=== PATIENT | male | born 1995 | race Caucasian/White ===

== ENCOUNTER 2016-06-06 07:14 | Emergency (ER) | payer BC, OTHER ==
[2016-06-06 08:35] VITALS: BP 118/74
--- NOTE | 2016-06-06 08:39 | RAD ---
INDICATION: Abdominal pain. COMPARISON: There are no prior studies available for comparison. TECHNIQUE: Supine and upright views of the abdomen were obtained. FINDINGS: The small bowel colon appear nondistended. There is an air-fluid level within the stomach. No free intraperitoneal air is seen. No abnormal calcifications are seen. IMPRESSION: NO EVIDENCE FOR OBSTRUCTION.
--- NOTE | 2016-06-06 10:40 | UC ---
Callum Dos Santos Billy, scribed for Lavern Villalobos DO on 06/06/16 at 0801 . Abdominal Pain Male HPI - HPI Summary HPI Summary: Patient is a 20 year-old male coming [place] [facility] [place] with intermittent, non- radiating, sharp epigastric pain. He states that the pain comes in waves every 10 minutes, with each episode lasting several minutes. Pain severity 8/10 at its worst. Pain is worse with food. He denies any vomiting at this time. He states he can "taste regurgitation" at times. He also reports loose stools as well as decreased frequency of BM's; he has only had 2-3 BM's in the last week with his last BM 3 days ago. Denies blood in the stool. Denies any urinary symptoms. Denies any other symptoms at this time. Patient had similar epigastric pain 2 weeks ago. - History of Current Complaint Chief Complaint: UCGI Stated Complaint: ABDOMINAL PAIN, AND VOMITING Time Seen by Provider: 06/06/16 07:52 Hx Obtained From: Patient Onset/Duration: Gradual Onset, Lasting Hours, Still Present Timing: Intermittent Episodes Lasting: - lasting minutes Severity Initially: Moderate Severity Currently: Moderate Pain Intensity: 8 Pain Scale Used: 0-10 Numeric Location: Epigastric Radiates: No Character: Sharp Aggravating Factor(s):: Food Alleviating Factor(s): Spontaneous Resolution, Nothing Associated Signs And Symptoms: Positive: Constipation, Vomiting - RECENT H/O STOMACH BUG RESOLVED ~10 DAYS AGO, Diarrhea - RECENT H/O STOMACH BUG RESOLVED ~ 10 DAYS AGO - NOW INFREGQUENT LOOSE STOOL, Other - decreased frequency and stool output; loose stools. Negative: Fever, Cough, Chest Pain, Dizzy, Back Pain, Blood in Stool, Urinary Symptoms, Nausea - Allergies/Home Medications Allergies/Adverse Reactions: Allergies Allergy/AdvReac Type Severity Reaction Status Date / Time No Known Allergies Allergy Verified 02/15/16 19:35 PMH/Surg Hx/FS Hx/Imm Hx Endocrine History Of: Denies: Diabetes, Thyroid Disease, Hyperthyroidism, Hypothyroidism, Dyslipidemia Cardiovascular History Of: Denies: Cardiac Disorders, Hypertension, Pacemaker/ICD, Myocardial Infarction , Congestive Heart Failure, Atrial Fibrillation, Deep Vein Thrombosis, Bleeding Disorders Respiratory History Of: Reports: Asthma - no inhaler Denies: COPD GI/ History Of: Denies: Gastroesophageal Reflux, Ulcer, Gastrointestinal Bleed, Gall Bladder Disease, Kidney Stones, Diverticulitis, Renal Disease, Urosepsis Neurological History Of: Denies: TIA, CVA, Dementia, Seizures, Migraine Psychological History Of: Denies: Anxiety, Depression, Bipolar Disorder, Schizophrenia, Post Traumatic Stress Disorder Cancer History Of: Denies: Lung Cancer, Colorectal Cancer, Breast Cancer, Prostate Cancer, Cervical Cancer Other History Of: Negative For: HIV, Hepatitis B, Hepatitis C, Anticoagulant Therapy - Surgical History Surgical History: Yes Surgery Procedure, Year, and Place: Ear tubes - Family History Known Family History: Positive: Diabetes Negative: Cardiac Disease, Hypertension - Social History Occupation: Employed Full-time - [employer] Alcohol Use: Rare Substance Use Type: None Smoking Status (MU): Never Smoked Tobacco - Immunization History Vaccination Up to Date: Yes Review of Systems Constitutional: Negative Skin: Negative Eyes: Negative ENT: Negative Respiratory: Negative Cardiovascular: Negative Gastrointestinal: Abdominal Pain, Other - loose stools, decreased stool output Genitourinary: Negative Motor: Negative Neurovascular: Negative Musculoskeletal: Negative Neurological: Negative Psychological: Negative All Other Systems Reviewed And Are Negative: Yes Physical Exam Triage Information Reviewed: Yes Appearance: Well-Appearing, No Pain Distress, Well-Nourished Vital Signs: Initial Vital Signs Temp 98.5 F 06/06/16 07:32 Pulse 71 06/06/16 07:32 Resp 16 06/06/16 07:32 BP 120/78 06/06/16 07:32 Pulse Ox 98 06/06/16 07:32 Vital Signs Reviewed: Yes Eyes: Positive: Conjunctiva Clear. Negative: Conjunctiva Inflamed ENT: Positive: Hearing grossly normal. Negative: Muffled/hoarse voice Neck: Positive: Supple, Nontender Respiratory: Positive: Lungs clear, Normal breath sounds, No respiratory distress, No accessory muscle use Cardiovascular: Positive: RRR, No Murmur Abdomen Description: Positive: Nontender - He states that his abdomen felt "irritated" but denied any abdominal tenderness, including in the epigastrium., Soft. Negative: CVA Tenderness (R), CVA Tenderness (L), Distended, Guarding, McBurney's Point Tenderness, Peritoneal Signs Bowel Sounds: Positive: Present Musculoskeletal Exam: Normal Neurological: Positive: Alert, Muscle Tone Normal Psychological: Positive: Age Appropriate Behavior Skin Exam: Normal Diagnostics - Radiology Abdomen X-Ray Radiology Interpretation Completed By: Radiologist - No evidence for obstruction. Abd Pain Male Course/Dx - Differential Dx/Clinical Impression Differential Diagnosis/HQI/PQRI: Constipation, Pancreatitis, Other - OBSTIPATION , GERD, GASTRITIS Provider Diagnoses: CONSTIPATION, GERD Discharge - Discharge Plan Condition: Stable Disposition: HOME Prescriptions: Omeprazole CAP* [Prilosec CAP* 20 MG] 20 mg PO DAILY #14 cap. Psyllium IRVING* [Metamucil IRVING*] 1 pkt PO DAILY PRN #1 box PRN Reason: Constipation Senna TAB* [Senokot TAB*] 1 tab PO BEDTIME PRN #1 box PRN Reason: Constipation Patient Education Materials: Constipation (ED), Gastroesophageal Reflux Disease (ED) Referrals: Sonu Tai MD [Primary Care Provider] - (follow up in 3-5 days) Additional Instructions: WE ARE GIVING YOU A MEDICINE THAT SHOULD HELP WITH YOUR REFLUX AND THE PAIN IT IS CAUSING YOU. HOWEVER, THIS MEDICINE SHOULD ONLY BE USED ON A SHORT TERM BASIS. ONE OF THE KEYS TO HEALTH IS TO IMPROVE YOUR DIGESTION. YOUR PCP SHOULD HELP YOU IDENTIFY WHY YOU ARE HAVING THIS PROBLEM SO THAT YOU CAN MAKE APPROPRIATE LIFESTYLE CHANGES. Your constipation right now may be the aftermath of your gastroenteritis. we recommend that you use daily fiber supplement until your bowels have normalized again. It is important to drink a full glass of water after taking fiber. You should also take the Senna tablet to stimulate persitalsis on a daily basis until your bowels have normalized. The documentation as recorded by the Callum mckeon Billy accurately reflects the service I personally performed and the decisions made by me, Lavern Villalobos DO.
== END 2016-06-06 09:14 | disposition home or self-care (01) ==
LOC: UCEAST 07:14
DX: K59.00 Constipation, unspecified (principal); K21.9 Gastro-esophageal reflux disease without esophagitis
CPT/HCPCS: 74020; 99212; G0463

== ENCOUNTER 2017-02-02 07:12 | Emergency (ER) | payer OTHER ==
[2017-02-02 07:25] VITALS: BP 109/74
--- NOTE | 2017-02-02 08:12 | UC ---
Jeremy Dos Santos Angela, scribed for Marylin Mcwilliams MD on 02/02/17 at 0747 . General HPI - HPI Summary HPI Summary: This pt is a 21 y/o male presenting to [facility] c/o sore throat, rhinorrhea, chills x2 days, worsening since last night. Pt notes he has cough which aggravates his sore throat. Pt denies pain with breathing. He states last night he had a migraine, located behind his eye. Pt has had these migraines before and usually treats them with ibuprofen. Additionally he c/o back pain, which he has had before with the flu. He endorses difficulty eating secondary to sore throat. Pt has taken ibuprofen for the last day and a half, last dose was at 2230 last night. He has not taken any medications for his rhinorrhea. He denies nausea, vomiting, SOB, chest pain, sinus pain. Pt notes his girlfriend is sick and has rhinorrhea. 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 .PMHx: bronchitis once a year (usually in March). No allergies. - History of Current Complaint Chief Complaint: UCGeneralIllness Stated Complaint: SORE THROAT COUGH CHILLS Time Seen by Provider: 02/02/17 07:26 Hx Obtained From: Patient Onset/Duration: Lasting Days Timing: Constant Associated Signs & Symptoms: Positive: Back Pain, Other - sore throat, migraine , chills, rhinorrhea. Negative: Chest Pain, Nausea, SOB, Vomiting - Allergy/Home Medications Allergies/Adverse Reactions: Allergies Allergy/AdvReac Type Severity Reaction Status Date / Time No Known Allergies Allergy Verified 02/02/17 07:18 PMH/Surg Hx/FS Hx/Imm Hx - Additional Past Medical History Additional PMH: migraine headaches, generally relieve with ibuprofen Previously Healthy: Yes Other Endocrine History: DENIES: diabetes Other Cardiovascular History: DENIES: HTN Respiratory History: Asthma - at a younger age, has not had it since, Bronchitis - once a year Other History Of: Negative For: HIV, Hepatitis B, Hepatitis C, Anticoagulant Therapy - Surgical History Surgical History: Yes Surgery Procedure, Year, and Place: Ear tubes - Family History Known Family History: Positive: Diabetes, Respiratory Disease - father has asthma, Other - Father: asthma Negative: Cardiac Disease, Hypertension - Social History 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 Lives: With Family - both parents Alcohol Use: Rare Substance Use Type: None Smoking Status (MU): Never Smoked Tobacco - Immunization History Vaccination Up to Date: Yes Review of Systems Constitutional: Chills Skin: Negative Eyes: Negative ENT: Sore Throat, Nasal Discharge - rhinorrhea, Other - NEG: sinus pain Respiratory: Cough, Other - NEG: SOB Cardiovascular: Negative Gastrointestinal: Negative Genitourinary: Negative Motor: Negative Neurovascular: Negative Musculoskeletal: Other: - back pain Neurological: Other - migraine Is Patient Immunocompromised?: No All Other Systems Reviewed And Are Negative: Yes Physical Exam Triage Information Reviewed: Yes Appearance: Ill-Appearing - looks fatigued and mildly unwell Vital Signs: Initial Vital Signs Temp 99.2 F 02/02/17 07:19 Pulse 104 02/02/17 07:19 Resp 16 02/02/17 07:19 BP 109/74 02/02/17 07:19 Pulse Ox 98 02/02/17 07:19 Eyes: Positive: Conjunctiva Inflamed - mild injection ENT: Positive: Pharyngeal erythema, TM dull - bilateral serous fluid, Tonsillar swelling Neck: Positive: Supple, Nontender, No Lymphadenopathy Respiratory: Positive: Lungs clear, Normal breath sounds Cardiovascular: Positive: RRR, No Murmur Abdomen Description: Positive: Nontender, No Organomegaly Diagnostics - Laboratory Diagnostic Studies Completed/Ordered: rapid strep negative. Course/Dx - Course Course Of Treatment: Pt medications reviewed this visit. - Differential Dx - Multi-Symptom Differential Diagnoses: Other - flu, sinusitis. Provider Diagnoses: acute sinusitis. Discharge - Discharge Plan Condition: Stable Disposition: HOME Prescriptions: Amoxicillin PO (*) [Amoxicillin 875 MG (*)] 875 mg PO BID #20 tab Patient Education Materials: Sinusitis (ED) Referrals: Sonu Tai MD [Primary Care Provider] - Additional Instructions: Increase rest and fluids and begin use of amoxicillin for treatment of sinusitis. You can use an over the counter decongestant to relieve symptoms. Continue use of ibuprofen 600mg three times daily for fever. The documentation as recorded by the Jeremy mckeon Angela accurately reflects the service I personally performed and the decisions made by me, Marylin Mcwilliams MD.
== END 2017-02-02 08:17 | disposition home or self-care (01) ==
LOC: UCEAST 07:12
DX: J01.90 Acute sinusitis, unspecified (principal); Z87.09 Personal history of other diseases of the respiratory system
CPT/HCPCS: 87651; 99212; G0463

== ENCOUNTER 2018-04-14 07:01 | Emergency (ER) | payer OTHER ==
--- OUTSIDE RECORDS SUMMARY | 2018-04-14 07:08 | XMS REPORT | Continuity of Care Document ---
:1995 External Reference #:[id number] Author Name Alexis Watson M.D. Address [address] [facility] [address] [place] [address] Care Team Providers Name Role Phone Sonu Tai M.D. 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 Payers Type Date Identification Numbers Payment Provider Subscriber Effective: Policy Number: [id number] [facility] / [facility] Bernard Walls 2017 PayID: [id number] [address] [place] [address] Advance Directives Description No Information Available Problems Description No Active Problems Family History Date Family Member(s) Problem(s) Comments Father Allergies Father Asthma Mother None mother is thin body habitus Number of Siblings Siblings: 2 First Brother ADHD First Brother ADHD First Sister Well Social History Type Date Description Comments Sex Unknown Lives With Mother And Father Sleep Typically sleeps 10 hours at least 9 a night Smoke-Free Home is smoke-free Pets 1 cat Pets 1 dog Work Status 03/19/2018 Currently Working at [employer] on [employer], works 3rd shift Abuse No history of abuse Tobacco Use Start: Unknown Tobacco Of Any Kind Denies Use Tobacco Use Start: Unknown Non Smoker Enjoy Exercising Plays Baseball Daily basketball and snowboarding Sun Exposure moderate amount of sun exposure Sun Exposure Uses sunscreen Seat Belt/Car Seat always uses seat belt Bike Helmet Always Guns in Home No Smoke Alarms Yes smoke alarm Recent Travel There has not been recent travel abroad Father's Occupation Loom Fixer Supervisor Mother's Occupation Admin. Discharge Coordinator [employer] No Daycare Needed Allergies, Adverse Reactions, Alerts Description No Known Drug Allergies Medications Medication Date Status Form Strength Qnty SIG Indications Ordering Provider PT For Back 03/19/ Active please M54.5 Shirley, Pain (Chronic 2018 evaluate Alexis Lower Back, and treat, M.Neil Acute Thoracic) modalities as needed, instruct in hep Metaxalone 03/19/ Active Tablets 800mg 30tab 1 by mouth M54.5 Silcoff, 2018 s three times Alexis, a day as M.D. needed for back pain Ondansetron 03/27/ Active Tablets 4mg 10tab 1 by mouth R11.2 Angelacotheresa, 2014 Dispers s every 4 Alexis, hours as M.D. needed for nausea/vomi ting; fill this Rx only if nausea starts escalating again Cetirizine HCL 11/27/ Active Tablets 10mg 30tab 1 by mouth 708.9 Sonu 2014 s every day A. as needed Zaire for hives M.D. Retin-A 12/14/ Active Gel 0.025% 45gm apply to 706.1 Sonu 2012 affected A. area every Zaire, night M.D. Amoxicillin/Cla 04/27/ Hx Tablets 875-125mg 20tab 1 tab po 463 Silcoff, vulanate 2012 - bid x 10 Alexis, Potassium 10/02/ M.D. 2014 Prednisone 04/27/ Hx Tablets 20mg 11tab 1 tab po x 463 Silcotheresa, 2012 - 5 days then Alexis 10/02/ 1/2 tab x 6 M.D. 2014 days Lidocaine 04/15/ Hx Solution 2% 100ml mix 15cc w/ 463 Silcotheresa, Viscous 2012 - 15cc water, Alexis, 04/25/ swish and M.DWillow 2013 swallow. may repeat q2h prn Minocycline HCL 02/14/ Hx Capsules 100mg 60cap 1 qd for 706.1 Sonu 2012 - acne for a A. 03/16/ month Zaire 2013 M.DWillow Proair HFA 03/29/ Hx Aerosol 108(90Bas 8.500 2 puffs 786.2 Siljose, 2010 - e) mcg/ac gm every 4 Alexis, 11/29/ hours as M.D. 2011 needed for cough Triamcinolone 11/24/ Hx Paste 0.1% 5gm apply 528.2 Shirley, In Orabase 2010 - 4x/day as Alexis 11/30/ needed for M.D. 2012 canker sores Prednisone 09/07/ Hx Tablets 10mg 30tab 4 tabs a 462 Sonu 2010 - s day for 4 A. 11/23/ days then 2 Zaire 2010 tabs a day M.D. for 4 days then 1 a day for 4 days Penicillin V 09/05/ Hx Tablets 500mg as Directed Unknown Potassium 2010 - 2010 Lidocaine 09/05/ Hx Solution 2% as Directed Unknown Viscous 2010 - 2010 PT For 07/14/ Hx evaluate 845.00 Silcoff, Bilateral Ankle 2010 - and treat, Alexis, Sprains 11/23/ instruct in M.D. 2010 hep, modalities prn Multivitamin/Mi 11/23/ Hx Capsules 27-1mg V20.2 Sonu francisco 2009 - A. 11/16/ Zaire 2014 M.DWillow Calcium 600 + D 11/23/ Hx Tablets 600-400mg otc 2 po qd V20.2 Sonu 2009 - -Unit A. 11/26/ Zaire 2014 M.DWillow Kenalog In 10/25/ Hx Paste 0.1% 5gm apply to 528.5 Sonu Dang 2008 - affected A. 02/22/ area tid Zaire 2007 MGrover Robitussin ac 05/30/ Hx 8Oz 2 tsp po 786.2 Shirley, 2007 - q4h prn for Alexis, 06/09/ cough; try M.D. 2007 to limit to nighttime use (as it is sedating) Amoxicillin 07/04/ Hx Suspension 250mg/5 QS 2 tsp po 381.4 Shirley 2006 - ML tid for 1 Alexis, 07/11/ week M.DWillow 2006 Sodium Sulamyd 10/19/ Hx Solution 10% QS Use qid 1 372.00 Sonu Opthalmic 2004 - Drop For 7 A. 10/26/ Days Zaire 2004 Roseline.DWillow Amoxicillin 09/20/ Hx Suspension 250mg/5 QS10d 2 tsp po 381.00 Shirley 2004 - ML ay tid for 10 Alexis, 09/30/ days M.DWillow 2004 Kenalog In 06/22/ Hx Paste 0.1% 5GMS Apply as 528.2 Alton Watson 2004 - Directed Alexis 10/25/ Ricco Walls M.D. 2008 Sores Sudafed 07/30/ Hx Syrup 15mg/5 ML 480ml 1-2 tsp qid 381.01 Sonu 2003 - for A. 08/06/ congestion Jelly Tai M.D. Amoxil 07/30/ Hx Suspension 250mg/5 QS 1 tsp tid 382.00 Sonu 2003 - ML for ten A. 08/09/ days Jelly Tai M.D. Immunizations CPT Code Status Date Vaccine Lot # [id number] Given 03/19/2018 Adacel or Boostrix, TDaP [id number] 54460 Given 12/23/2013 Gardasil HPV vaccine [id number] 59073 Given 09/18/2013 Gardasil HPV vaccine [id number] 10798 Given 03/21/2013 Gardasil HPV vaccine [id number] 79087 Given 02/14/2013 Flu, Split Virus 3Yrs [id number] 80471 Given 04/04/2012 Flu Vaccine Split Virus 3Yrs And Older [id number] 65230 Given 12/06/2011 Menactra Menningitis Vaccine [id number] 35970 Given 12/06/2011 Hep A, Ped/Adolscent, 2 Dose [id number] 52972 Given 02/07/2011 Flu, Split Virus 3Yrs [id number] 72575 Given 11/24/2010 Hep A, Ped/Adolscent, 2 Dose [id number] 24836 Given 12/22/2006 Varicella (Chicken Pox) Immunization [id number] 79461 Given 12/22/2006 Adacel or Boostrix, TDaP [id number] 43032 Given 12/22/2006 Menactra Menningitis Vaccine [id number] 00104 Given 10/13/2000 Dtap Immunization (Tripedia) (Infanrix) 19287 Given 01/27/2000 MMR Virus Immunization 70387 Given 08/05/1997 Varicella (Chicken Pox) Immunization 66555 Given 01/25/1997 DTP-Hib (Tetramune) 45270 Given 01/25/1997 Poliomyelitis Immunization 14735 Given 01/25/1997 MMR Virus Immunization 69734 Given 02/20/1996 Hep B Immunization, Ped/Adolescent To 11 Yrs 89503 Given 02/20/1996 DTP-Hib (Tetramune) 48204 Given 02/20/1996 Poliomyelitis Immunization 01130 Given 1995 Poliomyelitis Immunization 45537 Given 1995 DTP-Hib (Tetramune) 34684 Given 1995 DTP-Hib (Tetramune) 58543 Given 1995 Poliomyelitis Immunization 48792 Given 1995 Hep B Immunization, Ped/Adolescent To 11 Yrs 39436 Given 1995 Hep B Immunization, Ped/Adolescent To 11 Yrs U-Flu Refused 03/19/2018 Influenza,Unspecified Vital Signs Date Vital Result Comment 03/19/2018 5:05pm BP Systolic 128 mmHg BP Diastolic 82 mmHg Height 71.5 inches 5'11.50" Weight 178.00 lb BMI (Body Mass Index) 24.5 kg/m2 03/27/2015 9:57am BP Systolic 98 mmHg BP Diastolic 64 mmHg Heart Rate 76 /min reg Respiratory Rate 12 /min not laboured Body Temperature 98.2 F Weight 153.00 lb w/shoes 11/27/2014 3:01pm BP Systolic 122 mmHg BP Diastolic 90 mmHg Body Temperature 97.7 F Height 71.5 inches 5'11.50" Weight 151.00 lb BMI (Body Mass Index) 20.8 kg/m2 10/08/2013 3:31pm BP Systolic 100 mmHg BP Diastolic 78 mmHg Height 71 inches 5'11" Weight 148.00 lb BMI (Body Mass Index) 20.6 kg/m2 04/27/2013 11:04am BP Systolic 124 mmHg BP Diastolic 63 mmHg Heart Rate 109 /min Body Temperature 99.0 F Weight 159.00 lb shoes on 04/15/2013 12:10pm BP Systolic 104 mmHg BP Diastolic 82 mmHg Respiratory Rate 12 /min not laboured Body Temperature 98.3 F Weight 160.00 lb 04/09/2013 4:50pm BP Systolic 94 mmHg BP Diastolic 78 mmHg Height 72.50 inches 6'0.50" Weight 160.00 lb BMI (Body Mass Index) 21.4 kg/m2 03/21/2013 4:10pm BP Systolic 120 mmHg BP Diastolic 84 mmHg Weight 162.00 lb shoes on 12/06/2012 2:27pm BP Systolic 112 mmHg BP Diastolic 86 mmHg Height 71 inches 5'11" Weight 163.00 lb BMI (Body Mass Index) 22.7 kg/m2 12/06/2011 11:58am BP Systolic 110 mmHg BP Diastolic 80 mmHg Height 70.50 inches 5'10.50" Weight 148.00 lb BMI (Body Mass Index) 20.9 kg/m2 03/29/2011 4:14pm BP Systolic 98 mmHg BP Diastolic 80 mmHg Heart Rate 76 /min reg Respiratory Rate 12 /min not laboured Body Temperature 98.4 F Weight 139.00 lb Last Menstrual Period 0 03/14/2011 5:38pm BP Systolic 116 mmHg BP Diastolic 84 mmHg Weight 137.00 lb 02/07/2011 1:37pm BP Systolic 92 mmHg BP Diastolic 64 mmHg Heart Rate 76 /min Weight 136.00 lb 01/24/2011 10:08am BP Systolic 97 mmHg BP Diastolic 61 mmHg Heart Rate 89 /min Body Temperature 98.4 F Weight 132.00 lb 11/24/2010 4:12pm BP Systolic 100 mmHg BP Diastolic 60 mmHg Height 69.25 inches 5'9.25" Weight 128.00 lb BMI (Body Mass Index) 18.8 kg/m2 09/10/2010 4:48pm BP Systolic 98 mmHg BP Diastolic 62 mmHg Body Temperature 97.6 F Weight 122.00 lb 09/07/2010 3:42pm BP Systolic 88 mmHg BP Diastolic 68 mmHg Body Temperature 97.7 F Weight 122.00 lb 07/14/2010 4:33pm BP Systolic 100 mmHg BP Diastolic 58 mmHg Heart Rate 80 /min reg Respiratory Rate 12 /min not laboured Body Temperature 99.9 F Height 68.50 inches 5'8.50" Weight 126.00 lb BMI (Body Mass Index) 18.9 kg/m2 03/11/2010 3:35pm BP Systolic 98 mmHg BP Diastolic 76 mmHg Body Temperature 98.2 F Weight 125.00 lb 02/03/2010 4:58pm BP Systolic 94 mmHg BP Diastolic 70 mmHg Heart Rate 72 /min reg Respiratory Rate 12 /min not laboured Body Temperature 98.4 F Weight 120.00 lb Last Menstrual Period 0 11/23/2009 4:51pm BP Systolic 100 mmHg BP Diastolic 72 mmHg Heart Rate 80 /min Respiratory Rate 16 /min Height 66.75 inches 5'6.75" Weight 115.00 lb BMI (Body Mass Index) 18.1 kg/m2 09/24/2008 3:45pm Height 62 inches 5'2" Weight 96.00 lb BMI (Body Mass Index) 17.6 kg/m2 Last Menstrual Period 0 10/26/2007 4:08pm BP Systolic 94 mmHg BP Diastolic 78 mmHg Heart Rate 80 /min Respiratory Rate 16 /min Height 59 inches 4'11" Weight 83.00 lb BMI (Body Mass Index) 16.8 kg/m2 05/30/2007 3:00pm BP Systolic 80 mmHg BP Diastolic 56 mmHg Body Temperature 98.3 F Height 58.75 inches 4'10.75" Weight 79.00 lb BMI (Body Mass Index) 16.1 kg/m2 12/22/2006 9:58am BP Systolic 112 mmHg BP Diastolic 66 mmHg Heart Rate 80 /min Respiratory Rate 16 /min Height 57.25 inches 4'9.25" Weight 72.00 lb BMI (Body Mass Index) 15.4 kg/m2 07/25/2006 4:35pm BP Systolic 104 mmHg BP Diastolic 80 mmHg Body Temperature 98.1 F Height 56.75 inches 4'8.75" Weight 70.50 lb BMI (Body Mass Index) 15.4 kg/m2 07/04/2006 3:13pm BP Systolic 84 mmHg BP Diastolic 54 mmHg Body Temperature 97.9 F Height 56.50 inches 4'8.50" Weight 71.00 lb BMI (Body Mass Index) 15.6 kg/m2 10/19/2004 4:42pm Weight 63.00 lb 09/20/2004 8:47am Body Temperature 98.2 F Weight 64.00 lb 06/22/2004 9:01am BP Systolic 102 mmHg BP Diastolic 60 mmHg Body Temperature 101.3 F PO Weight 62.00 lb 02/25/2004 4:35pm BP Systolic 80 mmHg BP Diastolic 66 mmHg Heart Rate 80 /min Respiratory Rate 16 /min Height 51.3 inches 4'3.30" Weight 59.00 lb BMI (Body Mass Index) 15.8 kg/m2 Last Menstrual Period 0 09/01/2003 2:45pm Height 50.75 inches 4'2.75" Weight 58.50 lb BMI (Body Mass Index) 16.0 kg/m2 07/31/2003 4:38pm BP Systolic 100 mmHg R Arm Peds Cuff BP Diastolic 70 mmHg R Arm Peds Cuff Height 51 inches 4'3" Weight 58.00 lb BMI (Body Mass Index) 15.7 kg/m2 Results Test Date Facility Test Result H/L Range Note Laboratory test 02/15/2016 [facility] Rapid Strep Negative N Negative 1 finding [phone] Molecular Laboratory test 07/20/2015 [facility] Rapid Strep Negative N Negative 2 finding [phone] Molecular CBC Auto Diff 04/27/2013 [facility] White Blood 15.4 10^3/uL High 4.8 -10.8 [phone] Count Red Blood Count 4.97 10^6/uL 4.0-5.4 Hemoglobin 14.6 g/dL 14.0-18.0 Hematocrit 44 % 42-52 Mean Corpuscular Volume 88 fL 80-94 Mean Corpuscular Hemoglobin 29 pg 27-31 Mean Corpuscular HGB Conc 33 g/dL 31-36 Red Cell Distribution Width 13 % 10.5-15 Platelet Count 285 10^3/uL 150-450 Mean Platelet Volume 8 um3 7.4-10.4 Abs Neutrophils 12.9 10^3/uL High 1.5-7.7 Abs Lymphocytes 1.3 10^3/uL 1.0-4.8 Abs Monocytes 1.1 10^3/uL High 0-0.8 Abs Eosinophils 0 10^3/uL 0-0.6 Abs Basophils 0.1 10^3/uL 0-0.2 Abs Nucleated RBC 0.02 10^3/uL Granulocyte % 83.3 % High 38-83 Lymphocyte % 8.6 % Low 25-47 Monocyte % 7.3 % 1-9 Eosinophil % 0.3 % 0-6 Basophil % 0.5 % 0-2 Nucleated Red Blood Cells % 0.1 Laboratory test 04/27/2013 [facility] Monospot Negative Negative 3 finding [phone] Laboratory test 04/27/2013 In House Culture Throat - finding Rapid Screen Culture Throat - Laboratory test finding 04/15/2013 In House Culture Throat Rapid Screen neg Culture Throat neg Xray 02/07/2011 [facility] X-Ray, Wrist, Complete, unremarkable 4 Min. Of 3 Views L X-Ray, Hand, Min. 3 Views, LT see resutls Laboratory test finding 01/24/2011 In House Culture Throat Rapid Screen neg Culture Throat neg CBC With Manual 09/07/2010 [facility] White Blood Count 4.2 CUMM Low 4.8-10.8 Diff [phone] Red Cell Count 4.40 CUMM Low 4.6-6.2 Hemoglobin 13.5 g/dL Low 14.0-18.0 Hematocrit 40 % Low 42-52 Mean Corpuscular Volume 90 um3 80-94 Mean Corpuscular Hemoglob 31 pg 27-31 Mean Corpuscular HGB Cone 34 g/dL 32-36 Redcell Distribution WDTH 12 % 10.5-15 Platelet Count 276 CUMM 150-450 Mean Platelet Volume 8.7 um3 7.4-10.4 Polysegmented Neutrophil 42 % 38-83 Lymphocyte 46 % 25-47 Monocyte 10 % 0-13 Eosinophil 1 % 0-6 Basophil 1 % 0-2 Absolute Neutrophil Count 1.7 RBC Morphology NORMAL Liver Function Panel 09/07/2010 [facility] Total Protein 6.8 GM/DL 6.2-8.3 [phone] Albumin 3.8 GM/DL 3.6-5.4 Globulin 3.0 GM/DL 2-4 Albumin/Globulin Ratio 1.3 1-3 Bilirubin Total 0.9 mg/dL 0.4-1.5 5 Bilirubin Direct 0.1 mg/dL 0.1-0.5 Indirect Bilirubin 0.8 mg/dL 0.3-1.0 6 Alkaline Phosphatase 112 U/L Low 135-393 Alt (SGPT) 9 U/L Low 17-63 Ast (Sgot) 15 U/L 12-42 Laboratory test 09/07/2010 [facility] Monospot NEGATIVE Negative finding [phone] CBC No Diff 09/04/2010 [facility] White Blood Count 6.4 CUMM 4.8- 10.8 [phone] Red Cell Count 4.30 CUMM Low 4.6-6.2 Hemoglobin 13.0 g/dL Low 14.0-18.0 Hematocrit 38 % Low 42-52 Mean Corpuscular Volume 88 um3 80-94 Mean Corpuscular Hemoglob 30 pg 27-31 Mean Corpuscular HGB Cone 35 g/dL 32-36 Redcell Distribution WDTH 13 % 10.5-15 Platelet Count 205 CUMM 150-450 Mean Platelet Volume 8.7 um3 7.4-10.4 Laboratory test 09/04/2010 [facility] Monospot NEGATIVE Negative finding [phone] Throat-Beta Strept 09/04/2010 [facility] Throat-Beta Strep NEGAD 7 [phone] Culture Laboratory test 07/14/2010 In House Culture Throat neg finding Rapid Screen Culture Throat neg Xray 03/11/2010 [facility] X-Ray, Ribs, Unilateral - 2 nl Views, RT Ua Inhouse 10/26/2007 In House Ua Glucose - Ua Bilirubin - Ua Ketones - Ua Specific Wynne 1.020 Ua Blood - Ua PH 6.0 Ua Protein - Ua Urobilinogen - Ua Nitrite - Ua Leukocytes - Urine Micro Inhouse 10/26/2007 In House Urine Microscopic no cells, sediment Inhouse Laboratory test 10/26/2007 In House Hemoglobin 14.7 finding Laboratory test 05/30/2007 In House Culture Throat NEG finding Laboratory test 12/22/2006 In House Hemoglobin 11.7 finding Urine Micro Inhouse 12/22/2006 In House Urine Microscopic - Inhouse Ua Inhouse 12/22/2006 In House Ua Glucose - Ua Bilirubin - Ua Ketones - Ua Specific Wynne 1.030 Ua Blood - Ua PH 5.0 Ua Protein - Ua Urobilinogen - Ua Nitrite - Ua Leukocytes - Laboratory test finding 07/26/2006 In House Culture Throat Rapid Screen - Culture Throat - Laboratory test finding 06/22/2004 In House Culture Throat Rapid Screen neg Culture Strep Group A Throat NEG 1 Medical Librarian: [id number] WESLY Guthrie 2 Medical Librarian: [id number] BETINA FRANCOIS Due to the increased sensitivity of molecular testing, reflex cultures are no longer performed. 3 N 4 hand: slight variant at the [address] [facility] ulnar side 5 A metabolite of Naproxen, O-desmethylnaproxen, has been shown to interfere with the [place] method for measuring total bilirubin. Samples from patients who have taken Naproxen have shown spurious elevation in total bilirubin levels. 6 Please note updated reference range, effective 11/19/09 7 NEGATIVE FOR GROUP A BETA STREPTOCOCCUS Procedures Date Code Description Status 12/06/2012 23641 Visual Acuity Screening Test Completed 02/07/2011 20514 X-Ray Hand Three Or More Views Completed 02/07/2011 51148 X-Ray Wrist Three Views Completed 03/11/2010 20746 X-Ray Ribs Two Views Completed 12/03/2009 22903 Destruction Of Skin Lesions Up To 14 Flat Warts/Molluscum Completed Contag 09/24/2008 20087 Destruction Of Skin Lesions Up To 14 Flat Warts/Molluscum Completed Contag 12/22/2006 21947 Visual Acuity Screening Test Completed 10/19/2004 36906 Visual Acuity Screening Test Completed 09/01/2003 72050 Tympanometry Completed 07/31/2003 27964 Tympanometry Completed Encounters Type Date Location Provider Dx Diagnosis Office Visit 03/19/2018 4:00p Main Office Alexis Watson M.D. M54.5 Low back pain M54.9 Dorsalgia, unspecified Z23 Encounter for immunization Z41.8 Encntr for oth proc for purpose oth [facility] Office Visit 03/27/2015 10:00a Main Office Alexis Watson, R11.2 Nausea with M.D. vomiting, unspecified A09 Infectious gastroenteritis and colitis, unspecified Office Visit 11/27/2014 3:00p Main Office Jessica Henry, 708.9 Urticaria Unspec RPA-C 465.8 Upper Respiratory Infections Acute Other Multiple Sites Office Visit 10/08/2013 3:15p Main Office Sonu Tai M.D. 706.1 Acne Other 309.29 Adjustment Reaction Other Office Visit 04/27/2013 10:30a Main Office Manuela Garcia 463 Tonsillitis Acute 463 Tonsillitis Acute 784.1 Throat Pain 784.1 Throat Pain Office Visit 04/15/2013 11:30a Main Office Alexis Watson, 463 Tonsillitis Acute M.D. 784.1 Throat Pain Office Visit 04/09/2013 4:30p Main Office Sonu Rodrigez.1 Acne Edvin Tai M.D. Office Visit 03/21/2013 4:00p Main Office Barrie Fish, 726.72 Tendinitis D.O. Tibialis V05.8 Single Disease Spec Other Vaccination & Inoculation V07.2 Prophylactic Immunotherapy Office Visit 02/14/2013 12:55p Main Office Sonu Tai M.D. 706.1 Acne Other v07.2 Prophylactic Immunotherapy v04.81 Need For Prophylactic Vaccination & Inoculation/Influenza Office Visit 12/06/2012 2:15p Main Office Sonu A. Klepack, M.D. 706.1 Acne Other V20.2 Routine Infant Or Child Health Check V65.49 Counseling Other Spec V72.0 Examination Eyes & Vision Office Visit 12/06/2011 11:15a Main Office Alexis Watson, V20.2 Routine Infant Or M.D. Child Health Check V05.3 Viral Hepatitis Vaccination & Inoculation V05.8 Single Disease Spec Other Vaccination & Inoculation V07.2 Prophylactic Immunotherapy Office Visit 03/29/2011 3:45p Main Office Alexis Watson, 474.00 Tonsillitis Chronic M.D. 786.2 Cough Office Visit 03/14/2011 5:15p Main Office Alexis Watson, 845.00 Sprains & Strains M.D. Ankle Unspec Site E007.7 Activities Involving Volleyball ([place]ach) (Court) Office Visit 02/07/2011 1:40p Main Office Lety Raymundo, 842.09 Sprains & Strains P.A. Wrist & Hand Other V04.81 Need For Prophylactic Vaccination & Inoculation/Influenza V07.2 Prophylactic Immunotherapy Office Visit 01/24/2011 10:20a Main Office Lety Raymundo, 465.9 URI Upper P.A. Respiratory Infections Acute Unspec Sites 462 Pharyngitis Acute Office Visit 11/24/2010 4:00p Main Office Alexis Watson, V20.2 Routine Or M.D. Child Health Check 528.2 Oral Soft Tissue Disease Exclu Gingiva & Tongue Oral Aphthae V05.3 Viral Hepatitis Vaccination & Inoculation V07.2 Prophylactic Immunotherapy Office Visit 09/10/2010 4:30p Main Office Sonu Muniz Pharyngitis Acute Peng Tai Office Visit 09/07/2010 3:30p Main Office Sonu Muniz Pharyngitis Acute Peng Tai Office Visit 07/14/2010 4:15p Main Office Alexis Watson, 465.9 URI Upper M.DWillow Respiratory Infections Acute Unspec Sites 784.1 Throat Pain 845.00 Sprains & Strains Ankle Unspec Site 719.47 Pain Joint Ankle & Foot E007.3 Activities Involving Baseball Office Visit 03/11/2010 3:25p Main Office Sonu Lai 922.1 Contusion Chest Peng Tai Wall 786.52 Painful Respiration Office Visit 02/03/2010 4:45p Main Office Alexis Watson, 465.9 URI Upper M.D. Respiratory Infections Acute Unspec Sites 381.81 Eustachian Tube Dysfunction Office Visit 12/03/2009 3:45p Main Office Sonu Tai, 078.12 Plantar Wart M.DWillow 729.5 Pain In Limb Office Visit 11/23/2009 4:15p Main Office Sonu Tai, V20.2 Routine Infant Or M.D. Child Health Check 078.12 Plantar Wart Office Visit 05/15/2009 9:45a Main Office Alexis Watson, 924.11 Contusion Knee M.D. Office Visit 10/26/2007 4:00p Main Office Sonu Lai V20.2 Routine Infant Or Peng Tai Child Health Check 528.5 Oral Soft Tissue Excluding Gingiva & Tongue Lip Diseases 280.9 Iron Deficiency Anemia Unspec Office Visit 05/30/2007 2:30p Main Office Alexis Watson, 465.9 URI Upper M.D. Respiratory Infections Acute Unspec Sites 462 Pharyngitis Acute 786.2 Cough Office Visit 12/22/2006 10:00a Main Office Sonu Tai, V20.2 Routine Infant Or M.D. Child Health Check v06.1 Yxizucybdm-Dnldkms-Xirqyfah Combined (DTaP) v05.8 Single Disease Spec Other Vaccination & Inoculation v05.4 Varicella Vaccination & Inoculation v07.2 Prophylactic Immunotherapy v72.0 Examination Eyes & Vision v78.0 Screening Iron Deficiency Anemia v81.6 Screening For Genitourinary Conditions Other & Unspec V78.0 Screening Iron Deficiency Anemia Office Visit 07/25/2006 4:45p Main Office Alexis Watson, 465.9 URI Upper M.D. Respiratory Infections Acute Unspec Sites 462 Pharyngitis Acute Office Visit 07/04/2006 3:15p Main Office Shirley 381.4 Otitis Media Acute Or Peng Espinoza Chronic Nonsuppurative 728.71 Fibromatosis Plantar Fascia Office Visit 10/19/2004 4:15p Main Office Sonu Lai 372.00 Conjunctivitis Acute Peng Tai Unspec Office Visit 10/01/2004 8:30a Main Office Shirley 381.00 Otitis Media Peng Espinoza Nonsuppurative Acute Unspec Office Visit 09/20/2004 8:30a Main Office Shirley, 381.00 Otitis Media Peng Espinoza Nonsuppurative Acute Unspec Office Visit 06/22/2004 10:00a Main Office Shirley, 780.6 Fever Peng Espinoza 465.9 URI Upper Respiratory Infections Acute Unspec Sites 462 Pharyngitis Acute 528.2 Oral Soft Tissue Disease Exclu Gingiva & Tongue Oral Aphthae Office Visit 02/25/2004 4:00p Main Office Sonu Lai V20.2 Routine Or Peng Tai Child Health Check Office Visit 09/01/2003 2:45p Main Office Sonu Lai 381.19 Otitis Media Peng Tai Chronic Serous Other 465.9 URI Upper Respiratory Infections Acute Unspec Sites Office Visit 07/31/2003 4:50p Main Office Sonu Lai 388.70 Otalgia & Earache Peng Tai Unspec 381.01 Otitis Media Serous Acute 382.00 Otitis Media Suppurative Acute Plan of Treatment 03/19/2018 - Alexis Watson M.D.M54.5 Low back painNew Medication:PT For Back Pain (Chronic Lower Back, Acute Thoracic) - please evaluate and treat, modalities as needed, instruct in hepMetaxalone 800 mg - 1 by mouth three times a day as needed for back painComments:Chronic recurrent R sided LBP since remote trauma ~age 18-19 as noted above. Advised PT to address this, reserve muscle relaxants for use for flares.M54.9 Dorsalgia, unspecifiedComments:Upper back pain after recent fall w/ neck far flexed as noted above. No rad flags. Suspect slow improvement over weeks. RTO prn. If very persistent definitely address this w/ PT.Z23 Encounter for immunizationComments:Encouraged TdaP and flu vaccine. He declined flu but accepts TdaP. VIS provided.Z41.8 Encounter for other procedures for purposes other than remed
[2018-04-14 07:11] VITALS: BP 132/72
--- NOTE | 2018-04-14 07:24 | UC ---
Complaint Male HPI - HPI Summary HPI Summary: Patient Chief Complaint: right flank pain; dark urine Patient states he lifted weights yesterday; has had dark urine in past; pain is new. Injected testosterone ethonate 0.5 cc night; 24 hours later (last night) developed pain and dark urine. Pain quality: sharp, achey Course, aggravating, relieving: nothing stops; a little worse with movement; mostly "inside" Location:right flank, level of T-12 rib; localized to flank and anterior axillary line Severity: 11/07 MD note: VSS; 132/72; labs: plus 3 blood; no WBC; 2 plus protein Nurses Note: pt states that he has rt flank pain that started last night. pt states his urine is discolored and is reddish/purple. pt states he began to take large amounts of whey protein and started to inject steroids. pt states that it was is a sealed container and it is supposed to be testosterone and ethonate. pt states he first injection was on . - History of Current Complaint Chief Complaint: UCBackPain Stated Complaint: BACK AND R SIDE PAIN Time Seen by Provider: 04/14/18 07:15 Hx Obtained From: Patient Onset/Duration: Sudden Onset Timing: Constant Pain Intensity: 10 - 11/07 pain; was 02/07 - Allergies/Home Medications Allergies/Adverse Reactions: Allergies Allergy/AdvReac Type Severity Reaction Status Date / Time No Known Allergies Allergy Verified 04/14/18 07:11 Home Medications: Home Medications NK [No Home Medications Reported] 04/14/18 [History Confirmed 04/14/18] PMH/Surg Hx/FS Hx/Imm Hx - Additional Past Medical History Additional PMH: Review of visit history: low back pain; no kidnesy disease; no uti hx. 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 Family: with fiance Habits: lifts weights Previously Healthy: Yes Other History Of: Negative For: HIV, Hepatitis B, Hepatitis C, Anticoagulant Therapy - Surgical History Surgical History: Yes Surgery Procedure, Year, and Place: Ear tubes - Family History Known Family History: Positive: Diabetes, Respiratory Disease - father has asthma, Other - Father: asthma Negative: Cardiac Disease, Hypertension - Social History Alcohol Use: Rare Substance Use Type: None Smoking Status (MU): Never Smoked Tobacco - Immunization History Vaccination Up to Date: Yes Review of Systems All Other Systems Reviewed And Are Negative: Yes Constitutional: Positive: Negative Skin: Positive: Bruising - slight injection site discomfort anterior right thig Eyes: Positive: Negative ENT: Positive: Negative Respiratory: Positive: Negative Cardiovascular: Positive: Negative Gastrointestinal: Positive: Negative Genitourinary: Positive: Hematuria, Other - very dark urine beginning 10 hours ago. Negative: Dysuria, Frequency, Urgency Motor: Positive: Negative Neurovascular: Positive: Negative Musculoskeletal: Positive: Negative Neurological: Positive: Negative Psychological: Positive: Negative Is Patient Immunocompromised?: No - Comments Additional Review of Systems Comments: A 12 point review of systems was completed and was significantly positive for: right flank pain; dark urine. The remainder of the review was negative except as stated above in the ROS or HPI. Physical Exam - Summary Physical Exam Summary: Appearance: The patient is well-appearing, and is well-nourished. Moderate right flank pain. Eyes: Conjunctiva are clear. Pupils are equal and reactive to light and accommodation. Extra ocular muscle movement is intact. ENT: The hearing is grossly normal, the pharynx is normal, and the TMs are normal. There is no muffled or hoarse voice. No stridor. Neck: The neck is supple and there is no lymphadenopathy. Respiratory: The chest is nontender to palpation and without crepitus. The lungs are clear, there are normal breath sounds, and there is no respiratory distress. No wheezes, rales or rhonchi. Cardiovascular: Heart sounds reveal a regular rate and rhythm. There are no clicks, rubs or murmurs. There are no carotid bruits or thrills. Circulation is grossly intact. Abdomen: The abdomen is soft and nontender. There is no organomegaly. Bowel sounds are present and within normal limits. No point tenderness at McBurneys point. Right CVA tenderness; pain to palpation right flank and right upper abdomen. Musculoskeletal: Strength is intact. The patient moves all extremities. Neurological: The patient is alert. Motor and sensory are examination grossly intact. Speech is normal. Psychological: The patient displays age appropriate behavior Skin: Negative for rashes. Triage Information Reviewed: Yes Vital Signs: Initial Vital Signs Temp 98.3 F 04/14/18 07:03 Pulse 87 04/14/18 07:03 Resp 18 04/14/18 07:03 BP 132/72 04/14/18 07:03 Pulse Ox 100 04/14/18 07:03 Vital Signs Reviewed: Yes Complaint Male Course/Dx - Course Course Of Treatment: 22-year-old healthy male who comes in complaining of right flank pain over the past 10 hours. The pain is sharp, achy and moderate to severe. He also notes dark red colored urine. UA shows 3+ blood plus protein. 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 Examination is not consistent with musculoskeletal pain. My preliminary diagnosis is rhabdomyolysis, and I explained to the patient that he might have affected his kidney through the injection and/or through the weightlifting. I discussed this with the patient. He will go to the ED for further evaluation and treatment, as needed. MEDICATIONS REVIEWED: Medications have been included in the original chart and reviewed. HYPERTENSION REVIEWED: Patient is urgent/emergent. HTN secondary to pain. - Differential Dx/Diagnosis Differential Diagnosis/HQI/PQRI: Pyelonephritis, Testicular Torsion, Other - myoglobinuria; rhabdomyelisis Provider Diagnosis: Myoglobinuria, Rhabdomyolysis Discharge - Sign-Out/Discharge Documenting (check all that apply): Patient Departure All imaging exams completed and their final reports reviewed: No Studies - Discharge Plan Condition: Stable Disposition: HOME-RECOMMEND TO ED Patient Education Materials: Rhabdomyolysis (ED) Referrals: Sonu Tai MD [Primary Care Provider] - Additional Instructions: WE DISCUSSED: PLEASE SEEK CARE AT THE EMERGENCY DEPARTMENT NOW. Your diagnosis is RIGHT FLANK PAIN AND BLOOD IN YOUR URINE. THIS MAY BE RELATED TO YOUR INJECTION OR TO YOUR WORKING OUT. YOUR KIDNEY'S NEED FURTHER EVALUATION. GO TO ED NOW. - Billing Disposition and Condition Condition: STABLE Disposition: Home-Recommend to ED
== END 2018-04-14 07:50 | disposition home health service (06) ==
LOC: UCEAST 07:01
DX: R82.1 Myoglobinuria (principal); M62.82 Rhabdomyolysis
CPT/HCPCS: 81003; 99212; G0463

== ENCOUNTER 2018-04-14 08:03 | Inpatient (IN) | payer OTHER ==
[2018-04-14] MEDS ORDERED: NS 0.9% 1000 ML* 1,000 ML IV ONE (08:06)
[2018-04-14 08:31] LABS: ABS Basophils 0.1 10^3/ul (0-0.2); ABS Eosinophils 0.1 10^3/ul (0-0.6); ABS Lymphocytes 1.4 10^3/ul (1.0-4.8); ABS Monocytes 1.1 10^3/ul (0-0.8); ABS Neutrophils 10.7 10^3/ul (1.5-7.7); ABS Nucleated RBC 0 10^3/ul; Eosinophil % 0.6 %; Hematocrit 44 % (42-52); Hemoglobin 15.4 g/dl (14.0-18.0); Lymphocyte % 10.4 %; Mean Corpuscular HGB Conc 35 g/dl (31-36); Mean Corpuscular Hemoglobin 31 pg (27-31); Mean Corpuscular Volume 88 fL (80-94); Mean Platelet Volume 7.8 fL (7.4-10.4); Nucleated Red Blood Cells % 0; Platelet Count 257 10^3/ul (150-450); Red Blood Count 4.97 10^6/ul (4.00-5.40); Red Cell Distribution Width 13 % (10.5-15); White Blood Count 13.4 10^3/ul (3.5-10.8)
[2018-04-14 08:39] LABS: Urine Appearance Clear; Urine Bacteria Absent (Absent); Urine Bilirubin Negative (Negative); Urine Blood 3+ (Negative); Urine Color Yellow; Urine Glucose Negative (Negative); Urine Ketones Negative (Negative); Urine Nitrite Negative (Negative); Urine Protein Negative (Negative); Urine Red Blood Cell 3+(>10/hpf) (Absent); Urine Specific Gravity 1.005 (1.010-1.030); Urine Urobilinogen Negative (Negative); Urine White Blood Cell Absent (Absent)
[2018-04-14 08:53] LABS: Activated Partial Thrombo Time 27.2 seconds (26.0-36.3); INR 1.12 (0.77-1.02)
[2018-04-14 08:59] LABS: Albumin 4.7 g/dL (3.2-5.2); Albumin/Globulin Ratio 1.5 (1-3); BUN/Creatinine Ratio 13.3 (8-20); C Reactive Protein 32.27 mg/L (<8.01); Calcium 9.5 mg/dL (8.6-10.3); EGFR Non-African American 95.6 (>60); Globulin 3.1 g/dL (2-4); Potassium 3.9 mmol/L (3.5-5.0); Total Bilirubin 1.9 mg/dL (0.2-1.0); Total Protein 7.8 g/dL (6.4-8.9)
--- NOTE | 2018-04-14 09:04 | ED ---
GI/ HPI - HPI Summary HPI Summary: Patient presents from with abrupt onset right-sided flank pain that woke him up at 2300 last night. He reports his pain was 10 out of 10 and unrelenting. He had nausea preceding however denies fevers, chills, vomiting, chest pain, abdominal pain, diarrhea. He also has yaya blood in his urine without dysuria , urinary frequency, urinary hesitation, urinary urgency, testicular pain/ swelling/change in shape, penile pain, penile discharge/itching/burning. He has not tried anything for his symptoms other than drinking 3 bottles of water prior to arrival which he reports did not exacerbate pain. His pain is now between a 5-7 out of 10 and declines pain or nausea medication. BM's have been normal. His history is significant for not drinking enough water most days. He also admits to using supplement such as creatine, weight protein, "lots of soda" and just started using injectable testosterone x 1 in an effort to gain mass - interested in body building. He also reports he has not lifted weights in a while however he had a pretty heavy lifting session yesterday and feels "lactic acid" built-up throughout his body. 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 He reports a history of "back spasms" in the past. He follows with his PCP who is prescribed him both Soma and Flexeril when this bothers him. He's not sure if this feels the same. No known history of degenerative disc disease, radiculopathy, spinal trauma or fracture. Denies numbness, tingling, weakness to lower extremities today. No h/o bleeding disorders nor epistaxis, bleeding gums, bruising, rectal bleeding, etc. 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 Pain Intensity: 7 - Allergy/Home Medications Allergies/Adverse Reactions: Allergies Allergy/AdvReac Type Severity Reaction Status Date / Time No Known Allergies Allergy Verified 04/14/18 08:10 PMH/Surg Hx/FS Hx/Imm Hx Previously Healthy: Yes Endocrine/Hematology History: Denies: Hx Anticoagulant Therapy, Hx Blood Disorders, Hx Diabetes, Hx Thyroid Disease, Hx Unexplained Bleeding Cardiovascular History: Denies: Hx Congestive Heart Failure, Hx Deep Vein Thrombosis, Hx Hypertension , Hx Myocardial Infarction, Hx Pacemaker/ICD Respiratory History: Reports: Hx Asthma - well controlled Denies: Hx Chronic Obstructive Pulmonary Disease (COPD), Hx Lung Cancer GI History: Denies: Hx Gall Bladder Disease, Hx Gastrointestinal Bleed, Hx Ulcer, Hx Urosepsis History: Denies: Hx Acute Renal Failure, Hx Chronic Renal Failure, Hx Kidney Stones, Hx Renal Disease Musculoskeletal History: Reports: Hx Back Problems - "back spasms" since injury as teen Denies: Hx Arthritis, Hx Osteoporosis, Hx Scoliosis, Hx Tendonitis, Hx of Fracture(s), Hx Joint Replacement Neurological History: Denies: Hx Dementia, Hx Migraine, Hx Seizures, Hx Transient Ischemic Attacks (TIA) Psychiatric History: Denies: Hx Anxiety, Hx Depression, Hx Schizophrenia, Hx Bipolar Disorder - Surgical History Surgery Procedure, Year, and Place: Ear tubes Infectious Disease History: No Infectious Disease History: Denies: Hx Clostridium Difficile, Hx Hepatitis, Hx Human Immunodeficiency Virus (HIV), Hx of Known/Suspected MRSA, Hx Shingles, Hx Tuberculosis, Hx Known/ Suspected VRE, Hx Known/Suspected VRSA, History Other Infectious Disease, Traveled Outside the [place] in Last 30 Days - Family History Known Family History: Positive: Diabetes, Respiratory Disease - father has asthma, Other - Father: asthma Negative: Cardiac Disease, Hypertension - Social History 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: With Family - 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 Alcohol Use: Occasionally Hx Substance Use: No Substance Use Type: Reports: None Hx Tobacco Use: No Smoking Status (MU): Never Smoked Tobacco Review of Systems Constitutional: Negative Negative: Fever, Chills, Fatigue Eyes: Negative ENT: Negative Cardiovascular: Negative Respiratory: Negative Gastrointestinal: Negative Positive: see HPI Musculoskeletal: Other - back pain and muscle soreness Skin: Negative Neurological: Negative Psychological: Normal All Other Systems Reviewed And Are Negative: Yes Physical Exam Triage Information Reviewed: Yes Vital Signs On Initial Exam: Initial Vitals Temp Pulse Resp BP Pulse Ox 98.5 F 74 14 131/81 97 04/14/18 08:10 04/14/18 08:10 04/14/18 08:10 04/14/18 08:10 04/14/18 08:10 Vital Signs Reviewed: Yes Appearance: Positive: Well-Appearing, No Pain Distress, Well-Nourished Skin: Positive: Warm, Skin Color Reflects Adequate Perfusion, Dry - no ecchymosis, no purpura Head/Face: Positive: Normal Head/Face Inspection Eyes: Positive: Normal, EOMI, RADHA, Conjunctiva Clear ENT: Positive: Normal ENT inspection, Hearing grossly normal, Pharynx normal - mucosa moist Respiratory/Lung Sounds: Positive: Clear to Auscultation, Breath Sounds Present Cardiovascular: Positive: Normal, RRR, S1, S2. Negative: Leg Edema Left, Leg Edema Right Abdomen Description: Positive: Nontender, No Organomegaly, Soft, CVA Tenderness (R). Negative: CVA Tenderness (L), Distended, Guarding, Hernia @ Bowel Sounds: Positive: Present Male Genital Exam: Positive: Other - deferred Musculoskeletal: Positive: Normal, Strength/ROM Intact, Other - no signs of edema in muscle tissue Neurological: Positive: Normal, Sensory/Motor Intact, Alert, Oriented to Person Place, Time, CN Intact II-III, Reflexes Intact Psychiatric: Positive: Normal Diagnostics - Vital Signs Vital Signs Temp Pulse Resp BP Pulse Ox 04/14/18 08:21 89 98 04/14/18 08:20 85 135/88 98 04/14/18 08:10 98.5 F 74 14 131/81 97 - Laboratory Lab Results: Lab Results 04/14/18 04/14/18 04/14/18 Range/Units 08:16 08:16 08:20 WBC 13.4 H (3.5-10.8) 10^3/ul RBC 4.97 (4.00-5.40) 10^6/ul Hgb 15.4 (14.0-18.0) g/dl Hct 44 (42-52) % MCV 88 (80-94) fL MCH 31 (27-31) pg MCHC 35 (31-36) g/dl RDW 13 (10.5-15) % Plt Count 257 (150-450) 10^3/ul MPV 7.8 (7.4-10.4) fL Neut % (Auto) 80.1 % Lymph % (Auto) 10.4 % [place] % (Auto) 8.3 % Eos % (Auto) 0.6 % Baso % (Auto) 0.6 % Absolute Neuts (auto) 10.7 H (1.5-7.7) 10^3/ul Absolute Lymphs (auto) 1.4 (1.0-4.8) 10^3/ul Absolute Monos (auto) 1.1 H (0-0.8) 10^3/ul Absolute Eos (auto) 0.1 (0-0.6) 10^3/ul Absolute Basos (auto) 0.1 (0-0.2) 10^3/ul Absolute Nucleated RBC 0 10^3/ul Nucleated RBC % 0 INR (Anticoag Therapy) 1.12 H (0.77-1.02) APTT 27.2 (26.0-36.3) seconds Urine Color Yellow Urine Appearance Clear Urine pH 6.0 (5-9) Ur Specific [place] 1.005 L (1.010-1.030) Urine Protein Negative (Negative) Urine Ketones Negative (Negative) Urine Blood 3+ A (Negative) Urine Nitrate Negative (Negative) Urine Bilirubin Negative (Negative) Urine Urobilinogen Negative (Negative) Ur Leukocyte Esterase Negative (Negative) Urine WBC (Auto) Absent (Absent) Urine RBC (Auto) 3+(>10/hpf) A (Absent) Urine Bacteria Absent (Absent) Urine Glucose Negative (Negative) Result Diagrams: 04/14/18 08:16 04/14/18 08:16 Lab Statement: Any lab studies that have been ordered have been reviewed, and results considered in the medical decision making process. GIGU Course/Dx - Course Course Of Treatment: Patient presents with abrupt onset right flank pain that started last night 2300. [facility]. Provider there was concerned for rhabdomyolysis however he is found to have a 0.5 mm stone in the distal ureter on the right. There is hydronephrosis however patient's renal function appears to be within normal limits, he is urinating without difficulty, flank pain has improved from 10/10, to 7/10 to 5/10 w/ IV fluids only and appears to be passing stone. Urology was not consulted. CPK in the 3999's. Discussed case with Dr. Ca who agrees to admit for observation regarding rhabdomyolysis. Patient agrees with plan. Patient in stable condition at time of transition of care. He declines pain medication throughout his stay in the emergency department but is aware he may ask if his pain increases. Low-protein/no caffeine diet was also ordered as he is hungry. Will continue to strain urine to identify stone contents. - Diagnoses Provider Diagnoses: Rhabdomyolysis, Urinary tract stone Discharge - Sign-Out/Discharge Documenting (check all that apply): Patient Departure - Discharge Plan Condition: Stable Disposition: ADMITTED TO [facility] - Billing Disposition and Condition Condition: STABLE Disposition: Admitted to [facility]
[2018-04-14] MEDS ORDERED: NS 0.9% 1000 ML* 2,000 ML IV ONE (09:42)
[2018-04-14] MEDS ORDERED: Acetaminophen TAB* 325 MG PO PRN (10:42)
[2018-04-14] MEDS ORDERED: Morphine VIAL* 4 MG/ML VIAL (1 ml vial) IV PRN (10:43)
[2018-04-14] MEDS: NS 0.9% 1000 ML* 1,000 ML IV SCH ×2 (13:08→22:30)
--- NOTE | 2018-04-14 15:21 | HP ---
CC: Dr. Tai * HISTORY AND PHYSICAL: DATE OF ADMISSION: 04/14/18 CHIEF COMPLAINT: Right flank pain, brown discoloration of urine. HISTORY OF PRESENT ILLNESS: Bernard Walls is a 22-year-old male with no significant past medical history who presented to the hospital complaining of right flank pain in the past 12 hours. He also complains of generalized muscle pain after he worked out for 2 hours last night. The patient stated that he injected intramuscularly testosterone to build up his muscles 2 days ago. Yesterday, he decided to work out the first time in 2 months and he did upper body exercises which included pushups and weightlifting for 2 hours until "he could not do it anymore." Afterwards, he noticed problems with muscle aches in his chest, upper back and bilateral upper arms. He also noted that he could not sleep because of throbbing pain deep inside " his right flank." Today in the morning, his urine was discolored to brown discoloration. He came in to the ED for evaluation. Here, a CT of the abdomen noted a 5 mm ureteral stone on the right. He also had a CPK level of 4600. He is going to be placed on observation with diagnosis of rhabdomyolysis PAST MEDICAL HISTORY: The patient has no significant past medical history. MEDICATIONS: None, apart from injected testosterone 2 days earlier. ALLERGIES: No known drug allergies. FAMILY HISTORY: Positive for grandfather with history of diabetes. SOCIAL HISTORY: The patient works at [employer]. He lives with his parents who would be his surrogates. The patient wishes for his parents not to be informed about his testosterone injections a couple of days prior. The patient denies any tobacco or drug use. He drinks alcohol rarely. REVIEW OF SYSTEMS: Please see history of present illness. All the remaining 12 systems were reviewed with the patient and were otherwise negative. PHYSICAL EXAMINATION GENERAL: The patient is a very pleasant 22-year-old male who is in no acute distress. Alert, awake and oriented x3. VITAL SIGNS: Blood pressure 115/86, heart rate 78 and regular, respiratory rate 16, oxygen saturation 98% on room air, temperature 98.5. HEENT: Head: Atraumatic, normocephalic. Eyes: Pupils equal, round and reactive to light and accommodation. Oropharynx clear. Mucosa dry. NECK: Supple. No JVD. No bruits bilaterally. RESPIRATORY: Clear to auscultation bilaterally. CARDIOVASCULAR: Regular rate and rhythm. No murmur. ABDOMEN: Soft and nontender. Bowel sounds present in all 4 quadrants. Upon evaluation of the flank, the patient has mild right flank tenderness to palpation. EXTREMITIES: There is no edema. Pulses +2 bilaterally. There is no clubbing or cyanosis. On palpation of musculature of bilateral pectoralis muscles as well as upper back and bilateral shoulders, especially biceps bilaterally, the patient has tenderness to palpation. SKIN: No ecchymotic areas or rashes noted. The right upper thigh when the patient injected testosterone intramuscularly 2 days ago was inspected and apart from a small puncture site, there is no evidence of infection. NEUROLOGIC: Cranial nerves II through XII grossly intact. Motor strength is 5/ 5 bilaterally. LABORATORY DATA: White blood cell count 13.4, hemoglobin 15.4, hematocrit 44 and platelets 257,000. Sodium 134, potassium 3.9, chloride 101, carbon dioxide 26, BUN 13, creatinine 0.98. Liver function is unremarkable apart from mild elevation of total bilirubin of 1.9, AST of 62. The patient's creatine kinase level was 4661. C-reactive protein was 32. Lactic acid of 0.6. Urinalysis positive for +3 blood and +3 rbc's. IMAGING: CT of abdomen and pelvis, impression: "Bilateral nephrolithiasis including a 0.5 cm calculus of the distal right ureter with associated hydronephrosis." ASSESSMENT AND PLAN: The patient is a 22-year-old male who had an intramuscular testosterone shot for body building a couple of days ago. Subsequently, he exercised for the first time in 2 months for over 2 hours and developed rhabdomyolysis. He is going to be placed on overnight observation with generous intravenous fluid treatment resuscitation for his rhabdomyolysis. In regards to the patient's obstructing right-sided ureteral stone, the stone is 0.5 mm and it should be able to be passed. We will institute intravenous fluids and repeat renal ultrasound in the morning for reevaluation. We will also strain urine for the stone. For DVT prophylaxis, the patient is going to be placed on ambulation and otherwise, he is at low risk. The patient's code status is full and his surrogates are his parents. TIME SPENT: Approximately 55 minutes were spent on admission of this patient, more than half that time was spent [id number] with the patient doing the interview and physical exam. [id number]/[facility] #: [id number] PENELOPE
[2018-04-15] MEDS ORDERED: Ondansetron INJ* 2 MG/ML VIAL IV ONE (01:15)
[2018-04-15] MEDS ORDERED: Ondansetron INJ* 2 MG/ML VIAL ONE (01:17)
[2018-04-15] MEDS ORDERED: SUMAtriptan SQ* 6 MG/0.5 ML VIAL SUBCUT STA (01:38)
[2018-04-15 02:15] LABS: ABS Basophils 0.1 10^3/ul (0-0.2); ABS Eosinophils 0.1 10^3/ul (0-0.6); ABS Lymphocytes 1.9 10^3/ul (1.0-4.8); ABS Monocytes 0.9 10^3/ul (0-0.8); ABS Neutrophils 7.2 10^3/ul (1.5-7.7); ABS Nucleated RBC 0 10^3/ul; Eosinophil % 1.4 %; Hematocrit 38 % (42-52); Hemoglobin 13.3 g/dl (14.0-18.0); Lymphocyte % 18.7 %; Mean Corpuscular HGB Conc 35 g/dl (31-36); Mean Corpuscular Hemoglobin 31 pg (27-31); Mean Corpuscular Volume 88 fL (80-94); Mean Platelet Volume 8.2 fL (7.4-10.4); Nucleated Red Blood Cells % 0; Platelet Count 226 10^3/ul (150-450); Red Blood Count 4.35 10^6/ul (4.00-5.40); Red Cell Distribution Width 12 % (10.5-15); White Blood Count 10.2 10^3/ul (3.5-10.8)
[2018-04-15 02:36] LABS: Albumin 3.7 g/dL (3.2-5.2); Albumin/Globulin Ratio 1.4 (1-3); Calcium 8.7 mg/dL (8.6-10.3); EGFR Non-African American 120.9 (>60); Globulin 2.6 g/dL (2-4); Indirect Bilirubin 0.7 mg/dL (0.3-1.0); Potassium 3.6 mmol/L (3.5-5.0); Total Bilirubin 0.9 mg/dL (0.2-1.0); Total Protein 6.3 g/dL (6.4-8.9)
--- NOTE | 2018-04-15 03:05 | PN ---
Hospitalist Progress Note Date of Service: 04/15/18 called to bedside due to c/o headache. he woke with sweating and mild headache says his headache usually would go into his r orbital. sbp is 130s/70s ---> got his morphine but still has headache ---> imitrex 6 mg im ordered ---> temp is 99.8 ---> hx of gu stone with initial wbc 13 and not on abx. his temp is not high enough to grand abx treatment but will do his blood cx now along with am and added on lactic if his wbc keeps going up then will start abx
[2018-04-15] MEDS ORDERED: cefTRIAXone(*) 1 GM in NS 0.9% 50 ML* 50 ML IVPB SCH (08:00)
[2018-04-15] MEDS: NS 0.9% 1000 ML* 1,000 ML IV SCH ×3 (08:34→19:09)
--- NOTE | 2018-04-15 09:01 | PN ---
Subjective Date of Service: 04/15/18 Interval History: Pt c/o muscles on chest and b/l arms pain R>L. R flank pain resolved Pt had a headache last night and received a dose of triptan with good results. No headache today Objective Active Medications: Acetaminophen (Tylenol Tab*) 650 mg PO Q4H PRN PRN Reason: FEVER/PAIN Sodium Chloride (Ns 0.9% 1000 Ml*) 1,000 mls @ 200 mls/hr IV PER RATE BLAYNE Last Admin: 04/15/18 08:34 Dose: 200 mls/hr Morphine Sulfate (Morphine Vial*) 1 mg IV Q6H PRN PRN Reason: PAIN Vital Signs - 8 hr 04/15/18 04/15/18 04/15/18 01:15 02:21 07:16 Temperature 99.4 F 98.5 F 98.0 F Pulse Rate 108 95 80 Respiratory 22 18 Rate Blood Pressure 130/78 131/91 100/57 (mmHg) O2 Sat by Pulse 99 100 99 Oximetry Oxygen Devices in Use Now: None Appearance: 22 yo M in NAD, AAOx3 Eyes: No Scleral Icterus, PERRLA Ears/Nose/Mouth/Throat: NL Teeth, Lips, Gums, Mucous Membranes Moist Neck: NL Appearance and Movements; NL JVP, Trachea Midline Respiratory: Symmetrical Chest Expansion and Respiratory Effort, Clear to Auscultation Cardiovascular: NL Sounds; No Murmurs; No JVD, RRR Abdominal: NL Sounds; No Tenderness; No Distention, No Hepatosplenomegaly Lymphatic: No Cervical Adenopathy Extremities: No Clubbing, Cyanosis, - - tenser to palpation of muscles of b/l proximal arms Skin: No Rash or Ulcers, No Nodules or Sclerosis Neurological: Alert and Oriented x 3, NL Muscle Strength and Tone Result Diagrams: 04/15/18 01:54 04/15/18 01:54 Additional Lab and Data: Lab Results 04/14/18 04/14/18 04/14/18 Range/Units 08:16 08:16 08:20 WBC 13.4 H (3.5-10.8) 10^3/ul RBC 4.97 (4.00-5.40) 10^6/ul Hgb 15.4 (14.0-18.0) g/dl Hct 44 (42-52) % MCV 88 (80-94) fL MCH 31 (27-31) pg MCHC 35 (31-36) g/dl RDW 13 (10.5-15) % Plt Count 257 (150-450) 10^3/ul MPV 7.8 (7.4-10.4) fL Neut % (Auto) 80.1 % Lymph % (Auto) 10.4 % [place] % (Auto) 8.3 % Eos % (Auto) 0.6 % Baso % (Auto) 0.6 % Absolute Neuts (auto) 10.7 H (1.5-7.7) 10^3/ul Absolute Lymphs (auto) 1.4 (1.0-4.8) 10^3/ul Absolute Monos (auto) 1.1 H (0-0.8) 10^3/ul Absolute Eos (auto) 0.1 (0-0.6) 10^3/ul Absolute Basos (auto) 0.1 (0-0.2) 10^3/ul Absolute Nucleated RBC 0 10^3/ul Nucleated RBC % 0 INR (Anticoag Therapy) 1.12 H (0.77-1.02) APTT 27.2 (26.0-36.3) seconds Urine Color Yellow Urine Appearance Clear Urine pH 6.0 (5-9) Ur Specific [place] 1.005 L (1.010-1.030) Urine Protein Negative (Negative) Urine Ketones Negative (Negative) Urine Blood 3+ A (Negative) Urine Nitrate Negative (Negative) Urine Bilirubin Negative (Negative) Urine Urobilinogen Negative (Negative) Ur Leukocyte Esterase Negative (Negative) Urine WBC (Auto) Absent (Absent) Urine RBC (Auto) 3+(>10/hpf) A (Absent) Urine Bacteria Absent (Absent) Urine Glucose Negative (Negative) Assess/Plan/Problems-Billing Assessment: 22 yo M presented after he used IM testosterone and worked out for 2 hrs nonstop with "dirty urine " and R flank pain - Patient Problems (1) Traumatic rhabdomyolysis Comment: Pt got approx 8000 ml of IVF, despite that CPK still >4000. cont current tx with NS at 200 ml/hr (2) Hydronephrosis concurrent with and due to calculi of kidney and ureter Comment: on R, symptoms have resolved. suspect pt passed the stone. F/u renal US pending (3) DVT prophylaxis Comment: ambulation Status and Disposition: OBV will be changed to inpatient due to still significant rhabdomyolysis present
[2018-04-16] MEDS: NS 0.9% 1000 ML* 1,000 ML IV SCH ×5 (01:29→21:57)
[2018-04-16 07:11] LABS: Calcium 8.6 mg/dL (8.6-10.3); EGFR Non-African American 130.2 (>60)
--- NOTE | 2018-04-16 13:34 | PN ---
Subjective Date of Service: 04/16/18 Interval History: Pt feels much better. Muscle pain is resolving. Objective Active Medications: Acetaminophen (Tylenol Tab*) 650 mg PO Q4H PRN PRN Reason: FEVER/PAIN Sodium Chloride (Ns 0.9% 1000 Ml*) 1,000 mls @ 200 mls/hr IV PER RATE BLAYNE Last Admin: 04/16/18 11:59 Dose: 200 mls/hr Vital Signs - 8 hr 04/16/18 04/16/18 04/16/18 07:32 07:44 11:14 Temperature 97.4 F 98.0 F Pulse Rate 92 70 Respiratory 18 Rate Blood Pressure 126/75 138/81 (mmHg) O2 Sat by Pulse 98 100 Oximetry Oxygen Devices in Use Now: None Appearance: 22 yo M in nAD, aAOx3 Eyes: No Scleral Icterus, PERRLA Ears/Nose/Mouth/Throat: NL Teeth, Lips, Gums, Mucous Membranes Moist Neck: NL Appearance and Movements; NL JVP, Trachea Midline Respiratory: Symmetrical Chest Expansion and Respiratory Effort, Clear to Auscultation Cardiovascular: NL Sounds; No Murmurs; No JVD, RRR Abdominal: NL Sounds; No Tenderness; No Distention Lymphatic: No Cervical Adenopathy Extremities: No Edema, No Clubbing, Cyanosis Skin: No Rash or Ulcers, No Nodules or Sclerosis Neurological: Alert and Oriented x 3, NL Muscle Strength and Tone Result Diagrams: 04/15/18 01:54 04/16/18 06:23 Additional Lab and Data: Lab Results 04/14/18 04/14/18 04/14/18 Range/Units 08:16 08:16 08:20 WBC 13.4 H (3.5-10.8) 10^3/ul RBC 4.97 (4.00-5.40) 10^6/ul Hgb 15.4 (14.0-18.0) g/dl Hct 44 (42-52) % MCV 88 (80-94) fL MCH 31 (27-31) pg MCHC 35 (31-36) g/dl RDW 13 (10.5-15) % Plt Count 257 (150-450) 10^3/ul MPV 7.8 (7.4-10.4) fL Neut % (Auto) 80.1 % Lymph % (Auto) 10.4 % [place] % (Auto) 8.3 % Eos % (Auto) 0.6 % Baso % (Auto) 0.6 % Absolute Neuts (auto) 10.7 H (1.5-7.7) 10^3/ul Absolute Lymphs (auto) 1.4 (1.0-4.8) 10^3/ul Absolute Monos (auto) 1.1 H (0-0.8) 10^3/ul Absolute Eos (auto) 0.1 (0-0.6) 10^3/ul Absolute Basos (auto) 0.1 (0-0.2) 10^3/ul Absolute Nucleated RBC 0 10^3/ul Nucleated RBC % 0 INR (Anticoag Therapy) 1.12 H (0.77-1.02) APTT 27.2 (26.0-36.3) seconds Urine Color Yellow Urine Appearance Clear Urine pH 6.0 (5-9) Ur Specific [place] 1.005 L (1.010-1.030) Urine Protein Negative (Negative) Urine Ketones Negative (Negative) Urine Blood 3+ A (Negative) Urine Nitrate Negative (Negative) Urine Bilirubin Negative (Negative) Urine Urobilinogen Negative (Negative) Ur Leukocyte Esterase Negative (Negative) Urine WBC (Auto) Absent (Absent) Urine RBC (Auto) 3+(>10/hpf) A (Absent) Urine Bacteria Absent (Absent) Urine Glucose Negative (Negative) Microbiology and Other Data: Microbiology 04/15/18 01:54 Aerobic Blood Culture - Preliminary Blood Venous No Growth Day 1 Anaerobic Blood Culture - Preliminary No Growth Day 1 04/15/18 01:54 Aerobic Blood Culture - Preliminary Blood Venous No Growth Day 1 Anaerobic Blood Culture - Preliminary No Growth Day 1 Assess/Plan/Problems-Billing Assessment: 22 yo M presented after he used IM testosterone and worked out for 2 hrs nonstop with "dirty urine " and R flank pain - Patient Problems (1) Traumatic rhabdomyolysis Comment: Pt got approx 7000 ml of IVF/24H, despite that CPK still increasing cont current tx with NS at 200 ml/hr, asked Dr. Michaels to see pt in consult (2) Hydronephrosis concurrent with and due to calculi of kidney and ureter Comment: on R, symptoms have resolved. suspect pt passed the stone. F/u renal US on 04/15/18 shows resolution of hydronephrosis (3) DVT prophylaxis Comment: ambulation Status and Disposition: inpatient
[2018-04-16 13:55] LABS: Phosphorus 3.6 mg/dL (2.5-5.0)
[2018-04-17] MEDS: NS 0.9% 1000 ML* 1,000 ML IV SCH ×4 (03:19→20:52)
[2018-04-17 07:06] LABS: BUN/Creatinine Ratio 6.4 (8-20); Calcium 8.8 mg/dL (8.6-10.3); EGFR Non-African American 124.5 (>60); Potassium 3.8 mmol/L (3.5-5.0)
--- NOTE | 2018-04-17 12:22 | PN ---
Subjective Date of Service: 04/17/18 Interval History: Pt feels well, muscle pain resolved Objective Active Medications: Acetaminophen (Tylenol Tab*) 650 mg PO Q4H PRN PRN Reason: FEVER/PAIN Sodium Chloride (Ns 0.9% 1000 Ml*) 1,000 mls @ 200 mls/hr IV PER RATE BLAYNE Last Admin: 04/17/18 08:57 Dose: 200 mls/hr Vital Signs - 8 hr 04/17/18 04/17/18 07:34 08:00 Temperature 98.2 F Pulse Rate 78 Respiratory 16 16 Rate Blood Pressure 120/76 (mmHg) O2 Sat by Pulse 99 Oximetry Oxygen Devices in Use Now: None Appearance: 22 yo m in nAD, aAOx3 Eyes: No Scleral Icterus, PERRLA Ears/Nose/Mouth/Throat: NL Teeth, Lips, Gums, Mucous Membranes Moist Neck: NL Appearance and Movements; NL JVP, Trachea Midline Respiratory: Symmetrical Chest Expansion and Respiratory Effort, Clear to Auscultation Cardiovascular: NL Sounds; No Murmurs; No JVD Abdominal: NL Sounds; No Tenderness; No Distention Lymphatic: No Cervical Adenopathy Extremities: No Clubbing, Cyanosis, - - mild b/l hand edema noted Skin: No Rash or Ulcers, No Nodules or Sclerosis Neurological: Alert and Oriented x 3, NL Muscle Strength and Tone Result Diagrams: 04/15/18 01:54 04/17/18 06:30 Additional Lab and Data: Lab Results 04/14/18 04/14/18 04/14/18 Range/Units 08:16 08:16 08:20 WBC 13.4 H (3.5-10.8) 10^3/ul RBC 4.97 (4.00-5.40) 10^6/ul Hgb 15.4 (14.0-18.0) g/dl Hct 44 (42-52) % MCV 88 (80-94) fL MCH 31 (27-31) pg MCHC 35 (31-36) g/dl RDW 13 (10.5-15) % Plt Count 257 (150-450) 10^3/ul MPV 7.8 (7.4-10.4) fL Neut % (Auto) 80.1 % Lymph % (Auto) 10.4 % [place] % (Auto) 8.3 % Eos % (Auto) 0.6 % Baso % (Auto) 0.6 % Absolute Neuts (auto) 10.7 H (1.5-7.7) 10^3/ul Absolute Lymphs (auto) 1.4 (1.0-4.8) 10^3/ul Absolute Monos (auto) 1.1 H (0-0.8) 10^3/ul Absolute Eos (auto) 0.1 (0-0.6) 10^3/ul Absolute Basos (auto) 0.1 (0-0.2) 10^3/ul Absolute Nucleated RBC 0 10^3/ul Nucleated RBC % 0 INR (Anticoag Therapy) 1.12 H (0.77-1.02) APTT 27.2 (26.0-36.3) seconds Urine Color Yellow Urine Appearance Clear Urine pH 6.0 (5-9) Ur Specific [place] 1.005 L (1.010-1.030) Urine Protein Negative (Negative) Urine Ketones Negative (Negative) Urine Blood 3+ A (Negative) Urine Nitrate Negative (Negative) Urine Bilirubin Negative (Negative) Urine Urobilinogen Negative (Negative) Ur Leukocyte Esterase Negative (Negative) Urine WBC (Auto) Absent (Absent) Urine RBC (Auto) 3+(>10/hpf) A (Absent) Urine Bacteria Absent (Absent) Urine Glucose Negative (Negative) Microbiology and Other Data: Microbiology 04/15/18 01:54 Aerobic Blood Culture - Preliminary Blood Venous No Growth Day 1 Anaerobic Blood Culture - Preliminary No Growth Day 1 04/15/18 01:54 Aerobic Blood Culture - Preliminary Blood Venous No Growth Day 1 Anaerobic Blood Culture - Preliminary No Growth Day 1 Assess/Plan/Problems-Billing Assessment: 22 yo M presented after he used IM testosterone and worked out for 2 hrs nonstop with "dirty urine " and R flank pain - Patient Problems (1) Traumatic rhabdomyolysis Comment: Pt gets approx 7000 ml of IVF/24H, despite that CPK still increasing, today >[address] Michaels who recommended to cont current IVF, pt can be discharged if CPK approx 5000 (2) Hydronephrosis concurrent with and due to calculi of kidney and ureter Comment: on R, symptoms have resolved. suspect pt passed the stone. F/u renal US on 04/15/18 shows resolution of hydronephrosis (3) DVT prophylaxis Comment: ambulation Status and Disposition: inpatient
[2018-04-18] MEDS: NS 0.9% 1000 ML* 1,000 ML IV SCH ×6 (01:56→20:01)
[2018-04-18 07:41] LABS: BUN/Creatinine Ratio 8.7 (8-20); Calcium 9.1 mg/dL (8.6-10.3); EGFR Non-African American 143.4 (>60); Potassium 4.3 mmol/L (3.5-5.0)
--- NOTE | 2018-04-18 13:56 | PN ---
Subjective Date of Service: 04/18/18 Interval History: Pt has no complaints Objective Active Medications: Acetaminophen (Tylenol Tab*) 650 mg PO Q4H PRN PRN Reason: FEVER/PAIN Sodium Chloride (Ns 0.9% 1000 Ml*) 1,000 mls @ 250 mls/hr IV PER RATE BLAYNE Last Admin: 04/18/18 12:37 Dose: 250 mls/hr Vital Signs - 8 hr 04/18/18 04/18/18 07:40 08:00 Temperature 97.8 F Pulse Rate 72 Respiratory 16 18 Rate Blood Pressure 132/88 (mmHg) O2 Sat by Pulse 100 Oximetry Oxygen Devices in Use Now: None Appearance: 22 yo M in NAD, aAOx3 Eyes: No Scleral Icterus, PERRLA Ears/Nose/Mouth/Throat: NL Teeth, Lips, Gums, Mucous Membranes Moist Neck: NL Appearance and Movements; NL JVP, Trachea Midline Respiratory: Symmetrical Chest Expansion and Respiratory Effort, Clear to Auscultation Cardiovascular: NL Sounds; No Murmurs; No JVD, No Edema Abdominal: NL Sounds; No Tenderness; No Distention, No Hepatosplenomegaly Lymphatic: No Cervical Adenopathy Extremities: No Edema, No Clubbing, Cyanosis Skin: No Rash or Ulcers, No Nodules or Sclerosis Neurological: Alert and Oriented x 3, NL Muscle Strength and Tone Result Diagrams: 04/15/18 01:54 04/18/18 07:00 Additional Lab and Data: Lab Results 04/14/18 04/14/18 04/14/18 Range/Units 08:16 08:16 08:20 WBC 13.4 H (3.5-10.8) 10^3/ul RBC 4.97 (4.00-5.40) 10^6/ul Hgb 15.4 (14.0-18.0) g/dl Hct 44 (42-52) % MCV 88 (80-94) fL MCH 31 (27-31) pg MCHC 35 (31-36) g/dl RDW 13 (10.5-15) % Plt Count 257 (150-450) 10^3/ul MPV 7.8 (7.4-10.4) fL Neut % (Auto) 80.1 % Lymph % (Auto) 10.4 % [place] % (Auto) 8.3 % Eos % (Auto) 0.6 % Baso % (Auto) 0.6 % Absolute Neuts (auto) 10.7 H (1.5-7.7) 10^3/ul Absolute Lymphs (auto) 1.4 (1.0-4.8) 10^3/ul Absolute Monos (auto) 1.1 H (0-0.8) 10^3/ul Absolute Eos (auto) 0.1 (0-0.6) 10^3/ul Absolute Basos (auto) 0.1 (0-0.2) 10^3/ul Absolute Nucleated RBC 0 10^3/ul Nucleated RBC % 0 INR (Anticoag Therapy) 1.12 H (0.77-1.02) APTT 27.2 (26.0-36.3) seconds Urine Color Yellow Urine Appearance Clear Urine pH 6.0 (5-9) Ur Specific [place] 1.005 L (1.010-1.030) Urine Protein Negative (Negative) Urine Ketones Negative (Negative) Urine Blood 3+ A (Negative) Urine Nitrate Negative (Negative) Urine Bilirubin Negative (Negative) Urine Urobilinogen Negative (Negative) Ur Leukocyte Esterase Negative (Negative) Urine WBC (Auto) Absent (Absent) Urine RBC (Auto) 3+(>10/hpf) A (Absent) Urine Bacteria Absent (Absent) Urine Glucose Negative (Negative) Microbiology and Other Data: Microbiology 04/15/18 01:54 Aerobic Blood Culture - Preliminary Blood Venous No Growth Day 1 Anaerobic Blood Culture - Preliminary No Growth Day 1 04/15/18 01:54 Aerobic Blood Culture - Preliminary Blood Venous No Growth Day 1 Anaerobic Blood Culture - Preliminary No Growth Day 1 Assess/Plan/Problems-Billing Assessment: 22 yo M presented after he used IM testosterone and worked out for 2 hrs nonstop with "dirty urine " and R flank pain - Patient Problems (1) Traumatic rhabdomyolysis Comment: CPK slightly lower today. spoke with Dr. Dr. Michaels who recommended to cont current IVF, pt can be discharged if CPK approx 5000 (2) Hydronephrosis concurrent with and due to calculi of kidney and ureter Comment: on R, symptoms have resolved. suspect pt passed the stone. F/u renal US on 04/15/18 shows resolution of hydronephrosis (3) DVT prophylaxis Comment: ambulation Status and Disposition: inpatient
[2018-04-19] MEDS: NS 0.9% 1000 ML* 1,000 ML IV SCH ×3 (00:11→08:10)
[2018-04-19 07:31] LABS: BUN/Creatinine Ratio 5.8 (8-20); Calcium 8.7 mg/dL (8.6-10.3); EGFR Non-African American 111.2 (>60); Potassium 4.1 mmol/L (3.5-5.0)
[2018-04-19 07:54] VITALS: BP 104/81
--- NOTE | 2018-04-19 13:52 | DS ---
CC: Dr. Tai; Dr. Michaels * DISCHARGE SUMMARY: DATE OF ADMISSION: 04/14/18 DATE OF DISCHARGE: 04/19/18 PRIMARY CARE PROVIDER: Dr. Tai. DISCHARGE DIAGNOSES: 1. Rhabdomyolysis from over exercise in the patient who used intramuscular testosterone a day prior he exercised extensively. 2. Right-sided hydronephrosis due to ureteral stone obstruction that resolved during the hospital stay. SECONDARY DIAGNOSIS: None. MEDICATIONS AT DISCHARGE: None. CONSULTATIONS DURING THE HOSPITAL STAY: Dr. Michaels from Nephrology. LABORATORY DATA: On 04/15/18, white blood cell count of 10.2, hemoglobin of 13.3, hematocrit of 38, and platelets of 226,000. On 04/19/18, sodium 140, potassium 4.1, chloride 109, carbon dioxide 27, BUN 5, creatinine 0.86. CPK level was down to 5966, it peaked at 13,909 on 04/17/18. CT of abdomen and pelvis obtained at admission and impression: "Bilateral nephrolithiasis including a 0.5 cm calculus at the distal right ureter with associated hydronephrosis." Subsequent renal ultrasound obtained a day later on 04/15/18 on the right kidney , impression: "No right hydronephrosis or nephrolithiasis. The hydronephrosis noted on previous CT is no longer evident." HOSPITALIZATION COURSE: Bernard Walls is a 22-year-old male who presented to the hospital on 04/14/18 after he exercised excessively. Prior to the exercise , he injected himself with intramuscular testosterone to "both his muscles." He also stated that he had been taking creatinine supplements. When he came into the hospital, he complained of right flank pain and brown discoloration of urine. Incidentally, in addition to his rhabdomyolysis, he was noted to have a 0.5 cm right ureteral stone with subsequent hydronephrosis. That resolved spontaneously with intravenous fluids. He continued to be admitted to the hospital for rhabdomyolysis. Interestingly enough, his CPK level juan m from 4000 at admission to over 13,000 on 04/17/18. Dr. Michaels saw the patient in consultation and recommended continuation of current treatment with IV fluids. At that point, the patient's CPK started falling down. By the time of discharge , the patient's CPK level was 5966. The patient was no longer asymptomatic for a couple of days prior to discharge. He was advised to drink plenty of fluids at discharge and to follow up with Dr. Tai in approximately 1 week. PHYSICAL EXAMINATION AT THE TIME OF DISCHARGE: Blood pressure 111/81, heart rate of 73 and regular, respiratory rate of 17, oxygen saturation 99% on room air, temperature 97.7. General: The patient is a very pleasant 22-year-old male, who is in no acute distress, alert, awake, oriented x3. HEENT: Head atraumatic, normocephalic. Eyes: Pupils are equal and reactive to light and accommodation. Oropharynx clear. Mucosa moist. Neck: Supple. No JVD. No bruits bilaterally. Cardiovascular: Regular rate and rhythm. No murmur. Respiratory: Clear to auscultation bilaterally. Abdomen: Soft, nontender. Bowel sounds present in all 4 quadrants. Extremities: There is no edema. Pulses +2 bilaterally. No clubbing or cyanosis. Neuro Evaluation: Speech clear. Cranial nerves II through XII grossly intact. Motor strength is 5/5 bilaterally. Please note that this is a short summary of the patient's hospitalization. Please refer to further medical records for details. TIME SPENT: Approximately 35 minutes were spent on this patient's discharge. [id number]/[facility] #: [id number] [place]
== END 2018-04-19 11:25 | disposition home or self-care (01) | DRG 351 ==
LOC: ED 08:03 → MED 10:41 → OBSVTOIN 04-15 09:02
PROVIDERS: ADMIT Internal Medicine; ATTEND Internal Medicine
DX: T79.6XXA Traumatic ischemia of muscle, initial encounter (principal); N13.2 Hydronephrosis with renal and ureteral calculous obstruction; J45.909 Unspecified asthma, uncomplicated; R51 Headache; Z83.3 Family history of diabetes mellitus; Z82.5 Family history of asthma and other chronic lower respiratory diseases; Z72.89 Other problems related to lifestyle; X50.0XXA Overexertion from strenuous movement or load, initial encounter
CPT/HCPCS: 36415; 74176; 76775; 80048; 80053; 80076; 81003; 81015; 82550; 83605; 84100; 85025; 85610; 85730; 86140; 87040; 99283; G0378; J0696; J2405; J3030

== ENCOUNTER 2019-04-29 14:11 | Emergency (ER) | payer OTHER ==
[2019-04-29 14:23] VITALS: BP 131/70
--- NOTE | 2019-04-29 14:25 | UC ---
Truncal Trauma HPI - HPI Summary HPI Summary: Patient is a 23yo male presenting with L lateral rib pain x1 week after he was kicked during ju jitsu. Patient states pain was improving but that he made it worse today by wrestling. Notes increased sharp pain with deep breaths and sitting up straight. Denies SOB and chest pain. Denies difficulty breathing. Denies bruising and swelling. States he was taking ibuprofen which helped pain some. - History Of Current Complaint Chief Complaint: UCChestPain Stated Complaint: RIB INJURY Hx Obtained From: Patient Onset/Duration: Sudden Onset, Lasting Days Pain Intensity: 8 Pain Scale Used: 0-10 Numeric - Allergies/Home Medications Allergies/Adverse Reactions: Allergies Allergy/AdvReac Type Severity Reaction Status Date / Time No Known Allergies Allergy Verified 04/29/19 14:23 PMH/Surg Hx/FS Hx/Imm Hx Previously Healthy: Yes Other History Of: Negative For: HIV, Hepatitis B, Hepatitis C, Anticoagulant Therapy - Surgical History Surgical History: Yes Surgery Procedure, Year, and Place: Ear tubes - Family History Known Family History: Positive: Diabetes, Respiratory Disease - father has asthma, Other - Father: asthma Negative: Cardiac Disease, Hypertension - Social History Alcohol Use: Rare Substance Use Type: None Smoking Status (MU): Never Smoked Tobacco - Immunization History Most Recent Influenza Vaccination: never Most Recent Pneumonia Vaccination: never Vaccination Up to Date: Yes Review of Systems All Other Systems Reviewed And Are Negative: Yes Constitutional: Positive: Negative. Negative: Fever, Chills ENT: Positive: Negative Respiratory: Positive: Negative. Negative: Shortness Of Breath, Cough Cardiovascular: Positive: Negative. Negative: Palpitations, Chest Pain Gastrointestinal: Positive: Negative. Negative: Vomiting, Nausea Neurovascular: Positive: Negative Musculoskeletal: Positive: Arthralgia - L rib pain. Negative: Decreased ROM, Edema Neurological: Negative: Paresthesia, Numbness Physical Exam Triage Information Reviewed: Yes Appearance: Well-Appearing, No Pain Distress, Well-Nourished Vital Signs: Initial Vital Signs Temp 99.3 F 04/29/19 14:19 Pulse 95 04/29/19 14:19 Resp 17 04/29/19 14:19 BP 131/70 04/29/19 14:19 Pulse Ox 99 04/29/19 14:19 Vital Signs Reviewed: Yes Eyes: Positive: Conjunctiva Clear ENT: Positive: Hearing grossly normal Neck: Positive: Supple Respiratory Exam: Normal Respiratory: Positive: Lungs clear, Normal breath sounds, No respiratory distress, No accessory muscle use. Negative: Crackles, Rhonchi, Stridor, Wheezing Cardiovascular Exam: Normal Cardiovascular: Positive: RRR, No Murmur Musculoskeletal: Positive: No Edema, Other: - mild point tenderness of ribs beneath L breast. no edema or crepitus. no deformity noted. Neurological: Positive: Alert Psychological: Positive: Age Appropriate Behavior Skin Exam: Normal - no erythema or ecchymosis appreciated Diagnostics - Radiology ribs Radiology Interpretation Completed By: Radiologist Summary of Radiographic Findings: FINDINGS: There is no displaced rib fracture or pneumothorax. The visualized lungs are clear. IMPRESSION: NO DISPLACED RIB FRACTURE OR PNEUMOTHORAX. Truncal Trauma Course/Dx - Course Course Of Treatment: Discussed normal radiographs with patient. Educated on rib contusion and instructed to refrain from strenuous physical activity that worsens pain until it resolves fully. Educated on importance of coughing and taking deep breaths to avoid respiratory infection. Instructed to follow up with pcp if symptoms persist or go to ED with new or worsening symptoms. Patient voiced understanding and agreed with treatment plan. - Differential Dx/Diagnosis Provider Diagnosis: Contusion of rib on left side Discharge ED - Sign-Out/Discharge Documenting (check all that apply): Patient Departure All imaging exams completed and their final reports reviewed: Yes - Discharge Plan Condition: Stable Disposition: HOME Patient Education Materials: Rib Contusion (ED) Referrals: Alexis Watson MD [Primary Care Provider] - If Needed Additional Instructions: You may use lidocaine patches over the counter (Salonpas) for relief of your rib pain. You may continue to use over the counter pain medications as directed for pain relief. It is very important that you take deep breaths often and cough if you need to. This will help prevent respiratory infection from occurring. You should brace yourself by holding a pillow to your chest when doing this to decrease pain. Follow up with your primary care physician if symptoms do not begin to resolve within 7 days. Go to the emergency department if you experience worsening pain, difficulty breathing, fever, or you cough up blood. - Billing Disposition and Condition Condition: STABLE Disposition: Home
== END 2019-04-29 15:20 | disposition home or self-care (01) ==
LOC: UCEAST 14:11
DX: S20.212A Contusion of left front wall of thorax, initial encounter (principal); X58.XXXA Exposure to other specified factors, initial encounter; Y93.72 Activity, wrestling; Y92.9 Unspecified place or not applicable
CPT/HCPCS: 99211; G0463